=== PATIENT | male | born 1970 | race African-American/Black ===

== ENCOUNTER → 2020-10-28 10:09 | Outpatient (CLI) | payer OTHER, SELFPAY ==
--- NOTE | 2020-10-28 | DI.ECHO.S_ITS ---
[facility]---------+ [facility] +---------+ : : [address] : [place] : : : : [id number] : : : : Phone: [phone] +---------+ Echocardiogram Report + + :Name: MELINA SALGADO Study Date: 10/28/2020 Height: 69 in : :[facility] ReadingLocation: Weight: 295 lb : : Gender: Male BSA: 2.4 m2 : :: 1970 Age: 50 yrs BP: 166/84 mmHg: :Reason For Study: General examination : :Ordering Physician: CORINE, : :SUSY Performed By: Haim Mathews : :Referring: SUSY POOL : + + Interpretation Summary The ejection fraction is estimated to be 55-60%. There is no significant valvular heart disease. Procedure: A two-dimensional transthoracic echocardiogram with color flow and Doppler was performed. The study quality was technically adequate. There is no prior echocardiogram noted for this patient. The patient was in sinus rhythm with heart rates between 60-76 bpm during the exam. Left Ventricle: The left ventricle is normal in size and wall thickness. Left ventricular systolic function is normal. The ejection fraction is estimated to be 55-60%. There are no focal wall motion abnormalities. Diastolic parameters suggest probable normal left ventricular diastolic function and normal filling pressures. Right Ventricle: The right ventricle is normal in size and function. Atria: Both atria are normal in size. There is no Doppler evidence for an interatrial shunt. Mitral Valve: The mitral valve is normal in structure and function. There is trace mitral regurgitation. Aortic Valve: There is mild aortic valve sclerosis. No aortic regurgitation is present. Tricuspid Valve: The tricuspid valve is normal in structure and function. There is trace tricuspid regurgitation. Pulmonary artery pressures cannot be estimated because of the lack of a measurable TR jet velocity but the IVC suggests a CVP of around 3 mmHg. Pulmonic Valve: The pulmonic valve is normal in structure and function. There is no pulmonic valvular regurgitation. Great Vessels: The aortic root is normal size. The dimensions of the ascending aorta are normal. The IVC is of normal diameter and collapses greater than 50% with a sniff. This suggests a low right atrial pressure of 3 mm Hg. Pericardium/ Pleura There is no pericardial effusion. There is no pleural effusion. MMode/2D Measurements & Calculations LVIDd: 5.6 cm LVOT diam: 2.2 cm LVIDs: 3.9 cm Ao root diam: 3.1 cm FS: 29.9 % asc Aorta Diam: 3.5 cm IVSd: 1.1 cm LVPWd: 1.0 cm LV trujillo. diameter/BSA (cm/m^2): 2.3 LV sys. diameter/BSA (cm/m^2): 1.6 LA A4 area: 25.5 cm2 RA area: 18.4 cm2 LA length (vol): 5.6 cm RVD1 (basal): 3.8 cm Doppler Measurements & Calculations Ao V2 max: 150.7 cm/sec LVOT Max Gold: 106.8 cm/sec Ao V2 mean: 105.9 cm/sec LV V1 max P.6 mmHg Ao max P.1 mmHg LV V1 VTI: 20.8 cm Ao mean P.0 mmHg ABRAM(I,D): 2.9 cm2 Ao V2 VTI: 28.1 cm ABRAM(V,D): 2.8 cm2 sev ratio: 0.74 ABRAM indexed to BSA (cm^2/m^2): 1.2 MV E max gold: 80.0 cm/sec PA V2 max: 123.9 cm/sec MV A max gold: 60.2 cm/sec PA V2 mean: 78.0 cm/sec MV E/A: 1.3 PA mean P.9 mmHg Med Peak E' Gold: 12.0 cm/sec PA pr(Accel): 39.6 mmHg E/E' med: 6.7 Lat Peak E' Gold: 12.5 cm/sec E/E' lat: 6.4 E/e' average: 6.5 MV dec time: 0.19 sec SV(LVOT): 82.6 ml Reading Physician:02:54 PM
== END ==
PROVIDERS: Referring Provider Nurse Practitioner Family; Visit Provider Nurse Practitioner Family
DX: I35.8 Other nonrheumatic aortic valve disorders (principal)
CPT/HCPCS: 93306